=== PATIENT | male | born 1940 | race Caucasian/White ===

== ENCOUNTER 2017-04-03 12:01 | Emergency (ER) | payer MEDICARE, BC ==
[2017-04-03 12:19] VITALS: TEMP 97.3; O2SAT 100
[2017-04-03] MEDS ORDERED: SODIUM CHLORIDE 0.9% FLUSH 10 ML SOL IV PRN (12:20)
[2017-04-03 13:19] VITALS: BP 116/76; PULSE 60; RESP 17
== END 2017-04-03 13:18 | disposition home or self-care (01) | DRG 312 ==
LOC: ED 12:01
DX: R55 Syncope and collapse (principal); I50.9 Heart failure, unspecified; Z79.01 Long term (current) use of anticoagulants
CPT/HCPCS: 71045; 83880; 84484; 93005; 99283

== ENCOUNTER 2018-09-27 17:15 | Emergency (ER) | payer MEDICARE, BC ==
[2018-09-27 18:08] VITALS: RESP 24; TEMP 97.6
[2018-09-27 18:52] VITALS: BP 156/122; PULSE 70; O2SAT 95
[2018-09-27] MEDS ORDERED: LIDOCAINE HCL 1% MPF 30 SOL ONE (19:12)
[2018-09-27] MEDS ORDERED: LIDOCAINE HCL 1% MDV 50 ML SOL SC ONE (19:20)
[2018-09-27 19:22] LABS: CALCIUM 8.7 mg/dl (8.5-10.1); CREATININE 0.76 mg/dl (0.80-1.30); POTASSIUM 4.8 mMol/L (3.5-5.1)
[2018-09-27 19:27] LABS: CARBON DIOXIDE 28.7 mEq/L (21-32)
== END 2018-09-27 20:05 | disposition home or self-care (01) | DRG 605 ==
LOC: ED 17:15
DX: S00.83XA Contusion of other part of head, initial encounter (principal); E87.1 Hypo-osmolality and hyponatremia; S01.111A Laceration without foreign body of right eyelid and periocular area, initial encounter; W01.0XXA Fall on same level from slipping, tripping and stumbling without subsequent striking against object, initial encounter; Z79.01 Long term (current) use of anticoagulants
CPT/HCPCS: 12011; 36415; 80048; 99212; 99283; A6402; J2001